=== PATIENT | male | born 1970 | race African-American/Black ===

== ENCOUNTER 2016-06-24 08:34 | Emergency (ER) | payer MEDICAID, OTHER ==
[~2016-06-24] VITALS: Ht 182.9 cm; Wt 89.1 kg
[2016-06-24 08:43] VITALS: Ht 182.9 cm; Wt 89.1 kg
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
[2016-06-24] MEDS ORDERED: TETRACAINE 0.5% 4 ML OPH BOTH EYES ONE (09:30)
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
[2016-06-24] MEDS ORDERED: MINE3.5O30 BOTH EYES (11:32)
[2016-06-24] MEDS ORDERED: ACET500C5 PO (11:33)
[2016-06-24 11:44] VITALS: BP 132/72; PULSE 75; RESP 18; TEMP 98.1
== END 2016-06-24 11:44 | disposition home or self-care (01) ==
LOC: FTE 08:34
DX: S00.83XA Contusion of other part of head, initial encounter (principal); S00.81XA Abrasion of other part of head, initial encounter; Y08.89XA Assault by other specified means, initial encounter
CPT/HCPCS: 70450; 73030